=== PATIENT | female | born 1990 | race Caucasian/White ===

== ENCOUNTER 2021-02-21 20:45 | Emergency (ER) | payer OTHER, MEDICAID ==
[2021-02-21] MEDS ORDERED: Sodium Chloride 0.9% 10 ML Syringe FLUSH PRN (21:20)
[2021-02-21] MEDS ORDERED: Metoprolol Tartrate 5 MG/5 ML SDV IVPUSH ONE (21:21)
[2021-02-21 21:59] LABS: CHLORIDE,CL 103 mmol/L (98-107); SODIUM,NA 139 mmol/L (136-145)
[2021-02-21] MEDS ORDERED: Metoprolol Succinate 25 MG Tab.ER ONE (22:40)
[2021-02-21] MEDS ORDERED: Metoprolol Succinate 25 MG Tab.ER PO ONE (22:42)
--- NOTE | 2021-02-21 22:54 | EDM.PDOC ---
ED HPI GENERAL MEDICAL PROBLEM - General Chief Complaint: Cardiovascular Problem Stated Complaint: high blood pressure Time Seen by Provider: 02/21/21 21:10 Source of Information: Reports: Patient History Limitations: Reports: No Limitations - History of Present Illness INITIAL COMMENTS - FREE TEXT/NARRATIVE: Patient comes to ER concerned that she is continuing to have elevated BP post- . Diagnosed with pre-eclampsia and delivered at [facility] 4 days ago. Discharged yesterday. Prescribed Procardia/30mg. Admits to feeling stressed as this is their first baby and her first full day at home. BP at time of arrival noted to be running around 160/110. ROS: felt like her head was full, denies headache. No dizziness/vision changes/other focal neuro changes. Vaginal del donny at 38 weeks - Related Data Allergies Allergy/AdvReac Type Severity Reaction Status Date / Time cefotaxime sodium Allergy Hives Verified 02/21/21 21:19 [From Claforan] ceftriaxone sodium Allergy Hives Verified 02/21/21 21:19 [From Rocephin] loracarbef [From Lorabid] Allergy Hives Verified 02/21/21 21:19 Penicillins Allergy Hives Verified 02/21/21 21:19 Home Meds: Home Meds Levothyroxine Sodium [Synthroid] 175 mcg PO DAILY 10/29/18 [History] Docusate Sodium [Colace] 100 mg PO BID 02/21/21 [History] NIFEdipine [Nifedipine ER] 30 mg PO DAILY 02/22/21 [History] Past Medical History HEENT History: Reports: Other (See Below) Other HEENT History: Patient legally Blind Social & Family History - Caffeine Use Caffeine Use: Reports: None ED ROS GENERAL - Review of Systems Review Of Systems: See Below Constitutional: Reports: No Symptoms HEENT: Denies: Vision Change Respiratory: Reports: No Symptoms Cardiovascular: Reports: No Symptoms GI/Abdominal: Reports: No Symptoms : Reports: Other (has post bleeding/swelling ). Denies: Dysuria, Flank Pain, Frequency, Pain, Urgency, Urinary Retention Musculoskeletal: Reports: No Symptoms Skin: Reports: No Symptoms Neurological: Reports: Other (head felt full earlier). Denies: Confusion, Dizziness, Headache, Numbness, Paresthesia, Seizure, Syncope, Tingling, Trouble Speaking, Difficulty Walking, Weakness, Change in Speech, Gait Disturbance Psychiatric: Reports: No Symptoms ED EXAM, GENERAL - Physical Exam Exam: See Below Exam Limited By: No Limitations General Appearance: Alert, WD/WN, No Apparent Distress Eye Exam: Bilateral Eye: EOMI, PERRL Ears: Hearing Grossly Normal Nose: No: Nasal Deformity, Nasal Swelling, Nasal Drainage Throat/Mouth: Normal Lips, Normal Voice, No Airway Compromise Head: Atraumatic, Normocephalic Neck: Supple Respiratory/Chest: No Respiratory Distress, Lungs Clear, Normal Breath Sounds, No Accessory Muscle Use Cardiovascular: Regular Rate, Rhythm, No Edema, No Murmur GI/Abdominal: Normal Bowel Sounds, Soft, Non-Tender (Female) Exam: Deferred Rectal (Female) Exam: Deferred Back Exam: No: CVA Tenderness (L), CVA Tenderness (R), Muscle Spasm Extremities: Normal Inspection, Non-Tender, No Pedal Edema, Normal Capillary Refill Neurological: Alert, Oriented, CN II-XII Intact, Normal Cognition Psychiatric: Normal Affect, Normal Mood Course - Vital Signs Last Recorded V/S: Last Vital Signs Temp 37.1 C 02/21/21 20:50 Pulse 90 02/21/21 22:43 Resp 14 02/21/21 20:50 BP 147/99 H 02/21/21 22:43 Pulse Ox 99 02/21/21 20:50 - Orders/Labs/Meds Labs: Laboratory Tests 02/21/21 02/21/21 02/21/21 Range/Units 21:45 21:45 22:35 WBC 13.1 H (4.0-10.2) K/uL RBC 3.89 (3.77-5.09) M/uL Hgb 12.4 (11.7-15.5) g/dL Hct 36.0 (34.0-46.0) % MCV 92.5 (84.0-98.0) fL MCH 31.9 (28.2-33.3) pg MCHC 34.4 (31.7-36.0) g/dL RDW 12.3 (11.2-14.1) % Plt Count 287 (150-350) K/uL Neut % (Auto) 63.8 (45.0-80.0) % Lymph % (Auto) 23.7 (10.0-50.0) % [place] % (Auto) 9.6 (2.0-14.0) % Eos % (Auto) 2.7 (0.0-5.0) % Baso % (Auto) 0.2 (0.0-2.0) % Neut # (Auto) 8.35 H (1.40-7.00) K/uL Lymph # (Auto) 3.10 (0.50-3.50) K/uL [place] # (Auto) 1.26 H (0.00-1.00) K/uL Eos # (Auto) 0.36 (0.00-0.50) K/uL Baso # (Auto) 0.03 (0.00-0.20) K/uL Sodium 139 (136-145) mmol/L Potassium 4.1 (3.5-5.1) mmol/L Chloride 103 (98-107) mmol/L Carbon Dioxide 23.1 (21.0-32.0) mmol/L BUN 12 (7-18) mg/dL Creatinine 0.73 (0.51-1.17) mg/dL Est Cr Clr Drug Dosing TNP Estimated GFR (MDRD) > 60 mL/min Glucose 100 H (70-99) mg/dL Calcium 8.4 L (8.5-10.1) mg/dL Magnesium 1.9 (1.8-2.4) mg/dL Total Bilirubin 0.3 (0.2-1.0) mg/dL AST 54 H (15-37) U/L ALT 89 H (12-78) U/L Alkaline Phosphatase 142 H (46-116) IU/L Total Protein 7.6 (6.4-8.2) g/dL Albumin 3.2 L (3.4-5.0) g/dL Specimen Type Urincc Urine Color Yellow Urine Appearance Slightly cloudy Urine pH 7.0 (5.0-9.0) Ur Specific [place] 1.015 (1.005-1.030) Urine Protein Negative (NEGATIVE) mg/dL Urine Glucose (UA) Negative (NEGATIVE) mg/dL Urine Ketones Negative (NEGATIVE) mg/dL Urine Occult Blood Large H (NEGATIVE) Urine Nitrite Negative (NEGATIVE) Urine Bilirubin Negative (NEGATIVE) Urine Urobilinogen 0.2 (0.2-1.0) E.U./dL Ur Leukocyte Esterase Moderate H (NEGATIVE) Urine RBC 40-50 H /HPF Urine WBC 10-20 H /HPF Ur Epithelial Cells Few /LPF Urine Bacteria Few (NONE TO FEW) /HPF Meds: Medications Discontinued Medications Generic Name Dose Route Start Last Admin Trade Name Santi PRN Reason Stop Dose Admin Metoprolol Succinate Confirm 02/21/21 22:40 02/22/21 05:33 Metoprolol Succinate 25 Mg Tab.Er Administered 02/21/21 22:41 Not Given Dose 25 mg .ROUTE .STK-MED ONE Metoprolol Succinate 25 mg 02/21/21 22:42 02/21/21 22:43 Metoprolol Succinate 25 Mg Tab.Er PO 02/21/21 22:43 25 mg ONETIME ONE Administration Metoprolol Tartrate 2.5 mg 02/21/21 21:21 02/22/21 05:33 Metoprolol Tartrate 5 Mg/5 Ml Sdv IVPUSH 02/21/21 21:22 Not Given ONETIME ONE Sodium Chloride 10 ml 02/21/21 21:20 Sodium Chloride 0.9% 10 Ml Syringe FLUSH ASDIRECTED PRN Keep Vein Open - Re-Assessments/Exams Free Text/Narrative Re-Assessment/Exam: 02/21/21 23:03 WBC mildly elevated. UA had RBC and some WBCs. Patient continues to have lochia and suspect this is what is influencing the UA. Culture ordered. She denies UTI complaints. Continues to have some LFT elevation. BP improved on own while labs being performed. Initially did not want any extra BP meds but eventually ok with taking single Metoprolol. Call placed to [facility] to review patient with . He was not able to speak due to being involved in a delivery. Plan at this time is to let patient go home. We will wait for 's phone call and recommendations and will pass these along to the patient in the morning. Precautions reviewed. Free Text/Narrative Re-Assessment/Exam: 02/21/21 23:13 returned our phone call. Recommended increasing Procardia XL to 60mg daily. This recommendation was passed on to patient by telephone/nursing staff. Departure - Departure Time of Disposition: 22:50 Disposition: Home, Self-Care 01 Condition: Good Clinical Impression: hypertension Instructions: Hypertension Referrals: Alycia May PA [Primary Care Provider] - Forms: ED Department Discharge Additional Instructions: Continue tracking your BP at home. Remember to sit quietly for 5 min before taking a reading. Download a meditation jhonny on your phone such as KONUX or Iggli and make sure that you practice relaxation/meditation for 5 minutes twice a day! We will call you tomorrow and relay what Kanu says regarding any additional intervention. If they want something done immediately you will be called overnight. Follow up otherwise as needed.
== END 2021-02-21 23:04 | disposition home or self-care (01) ==
LOC: LL.ED 20:45
DX: O16.5 Unspecified maternal hypertension, complicating the puerperium (principal); Z88.1 Allergy status to other antibiotic agents; Z88.0 Allergy status to penicillin; Z79.899 Other long term (current) drug therapy
CPT/HCPCS: 36415; 80053; 81001; 83735; 85025; 87086; 99283; A9270

== ENCOUNTER 2024-05-08 17:49 | Emergency (ER) | payer MEDICAID ==
[2024-05-08] MEDS ORDERED: Sodium Chloride 0.9% 10 ML Syringe FLUSH PRN (17:56)
[2024-05-08 18:08] LABS: BASOPHILS ABSOLUTE AUTO 0.01 K/uL (0.00-0.20); BASOPHILS PERCENT AUTO 0.1 % (0.0-2.0); EOSINOPHILS ABSOLUTE AUTO 0.03 K/uL (0.00-0.50); EOSINOPHILS PERCENT AUTO 0.3 % (0.0-5.0); HEMOGLOBIN 13.9 g/dL (11.7-15.5); LYMPHOCYTES ABSOLUTE AUTO 0.86 K/uL (0.50-3.50); LYMPHOCYTES PERCENT AUTO 8.1 % (10.0-50.0); MEAN CORPUSCULAR HGB CONC 33.1 g/dL (31.7-36.0); MEAN CORPUSCULAR VOLUME 90.7 fL (84.0-98.0); MONOCYTES ABSOLUTE AUTO 0.81 K/uL (0.00-1.00); MONOCYTES PERCENT AUTO 7.6 % (2.0-14.0); NEUTROPHILS ABSOLUTE AUTO 8.94 K/uL (1.40-7.00); NEUTROPHILS PERCENT AUTO 83.9 % (45.0-80.0); PLATELET COUNT,PLT 225 K/uL (150-350); RED BLOOD CELL COUNT 4.63 M/uL (3.77-5.09); RED CELL DISTRIBUTION WIDTH 12.6 % (11.2-14.1); WHITE BLOOD CELL COUNT,WBC 10.7 K/uL (4.0-10.2)
[2024-05-08] MEDS: Lactated Ringers 1,000 ML IV ONE (18:13)
[2024-05-08 18:28] LABS: ALBUMIN 3.5 g/dL (3.4-5.0); ANION GAP 13.1 meq/L (7-15); BILIRUBIN TOTAL 0.9 mg/dL (0.2-1.0); CALCIUM 7.9 mg/dL (8.5-10.1); CARBON DIOXIDE,CO2 21.9 mmol/L (21.0-32.0); CREATININE 0.93 mg/dL (0.51-1.17); EST CRCL DRUG DOSING (CG) 81.3 mL/min; MAGNESIUM 1.6 mg/dL (1.8-2.4); POTASSIUM,K 3.8 mmol/L (3.5-5.1); PROTEIN TOTAL,TP 7.3 g/dL (6.4-8.2)
[2024-05-08] MEDS: Magnesium Chloride 64 MG Tab.ER PO ONE (18:59)
[2024-05-08] MEDS: Ondansetron 4 MG/2 ML SDV IVPUSH ONE (18:59)
[2024-05-08] MEDS: Calcium Carbonate/Vitamin D3 1500 MG-400 Units Tab PO ONE (19:03)
[2024-05-08] MEDS: Take Home: Ondansetron 4 MG Tab.DIS, 5 Tab Pack PO ONE (19:22)
== END 2024-05-08 19:25 | disposition home or self-care (01) ==
LOC: LL.ED 17:49
DX: K52.9 Noninfective gastroenteritis and colitis, unspecified (principal); Z79.899 Other long term (current) drug therapy; Z88.1 Allergy status to other antibiotic agents; Z88.0 Allergy status to penicillin; Z88.8 Allergy status to other drugs, medicaments and biological substances
CPT/HCPCS: 36415; 80053; 83735; 85025; 96361; 96374; 99284; A9270; J2405; J7120; Q0162